=== PATIENT | male | born 1930 | race Caucasian/White ===

== ENCOUNTER 2018-05-04 10:09 | Emergency (ER) | payer MEDICARE, OTHER ==
[~2018-05-04] VITALS: Ht 188 cm; Wt 81.8 kg
[2018-05-04] MEDS ORDERED: methylPREDNISolone sod succ 125mg/2ml vial IV ONE (10:40)
[2018-05-04] MEDS ORDERED: diphenhydrAMINE 50 mg/ml inj IV ONE (10:40)
[2018-05-04] MEDS ORDERED: normal saline 1000ML IV soln IVB ONE (10:40)
[2018-05-04] MEDS ORDERED: famotidine/PF 10 mg/ml inj IV ONE (10:40)
[2018-05-04 11:35] VITALS: BP 117/78
== END 2018-05-04 11:30 | disposition home or self-care (01) ==
LOC: ER 10:11
DX: R22.0 Localized swelling, mass and lump, head (principal); T78.40XA Allergy, unspecified, initial encounter; H21.01 Hyphema, right eye; I10 Essential (primary) hypertension; Y92.9 Unspecified place or not applicable
CPT/HCPCS: 96374; 96375; 99284; J1200; J2930; J3490